=== PATIENT | female | born 1935 | race Caucasian/White ===

== ENCOUNTER 2019-03-20 13:26 | Inpatient (IN) | payer OTHER, MEDICAID ==
[~2019-03-20] VITALS: Ht 149.9 cm; Wt 52.2 kg
[2019-03-20 13:26] VITALS: BP_SYST 138
--- NOTE | 2019-03-20 13:30 | NUR ---
Placed in room 07 . Placed on racetrack steward, blood pressure machine and pulse oximeter. To gown for exam. Side rails up. Report given to Radha PEOPLES.
--- NOTE | 2019-03-20 13:31 | NUR ---
ER at bedside examining patient.
--- NOTE | 2019-03-20 13:35 | NUR ---
Pt AAOx1-2 BIB BLS from [facility] for evaluation of increased confusion, increased general weakness. Labs drawn yesterday with abnormal values of K 6.6, CXR positive PNA, and +UTI. Pt denies complaints at this time. Skin dry and warm, cough present. No other injuries/complaints per pt/noted. Will continue to monitor.
[2019-03-20 14:12] LABS: BASOPHILS % (AUTO) 0.6 % (0.0-2.0); EOSINOPHILS # (AUTO) 0.1 K/uL (0.0-0.4); EOSINOPHILS % (AUTO) 2.2 % (0.0-4.0); HEMATOCRIT 25.1 % (36-48); HEMOGLOBIN 8.3 g/dL (12.0-16.0); LYMPHOCYTES # (AUTO) 0.4 K/uL (1.0-5.5); LYMPHOCYTES % (AUTO) 5.9 % (20.5-51.5); MEAN CORPUSCULAR HEMOGLOBIN 29 pg (27-31); MEAN CORPUSCULAR HGB CONC 33 % (32-36); MEAN CORPUSCULAR VOLUME 87 fL (79.0-98.0); MONOCYTES # (AUTO) 0.7 K/uL (0.0-1.0); MONOCYTES % (AUTO) 11.2 % (1.7-9.3); NEUTROPHILS # (AUTO) 4.9 K/uL (1.8-7.7); NEUTROPHILS % (AUTO) 80.1 % (40.0-70.0); PLATELET COUNT (AUTO) 233 K/uL (130-430); RED BLOOD CELL COUNT(AUTO) 2.88 MIL/uL (4.2-6.2); RED CELL DISTRIBUTION WIDTH 16.3 % (9.0-15.0); WHITE BLOOD COUNT (AUTO) 6.1 K/uL (4.8-10.8)
[2019-03-20] MEDS ORDERED: DONE10TA44 PO (14:13)
[2019-03-20] MEDS ORDERED: LISI10TA PO (14:13)
[2019-03-20] MEDS ORDERED: ATOR40TA68 PO (14:13)
[2019-03-20] MEDS ORDERED: APIX5TAB4 PO (14:13)
[2019-03-20] MEDS ORDERED: LEVO5TAB13 PO (14:13)
[2019-03-20] MEDS ORDERED: ASPI-1153 PO (14:13)
[2019-03-20] MEDS ORDERED: ALEN35TA17 PO (14:13)
[2019-03-20] MEDS ORDERED: METO25TA6 PO (14:13)
[2019-03-20] MEDS ORDERED: BISA10SU61 RC (14:13)
[2019-03-20] MEDS ORDERED: ISOS5TAB3 PO (14:13)
[2019-03-20] MEDS ORDERED: ALBU2.5V7 INH (14:13)
[2019-03-20] MEDS ORDERED: GLU500 PO (14:13)
[2019-03-20] MEDS ORDERED: POLY119P15 PO (14:13)
[2019-03-20] MEDS ORDERED: ALPR0.25 PO (14:13)
[2019-03-20] MEDS ORDERED: ANAS1TAB51 PO (14:13)
[2019-03-20] MEDS ORDERED: CYCL-10 PO (14:13)
[2019-03-20] MEDS ORDERED: PRO40 PO (14:14)
[2019-03-20] MEDS ORDERED: SENN-83 PO (14:14)
[2019-03-20] MEDS ORDERED: TRAM50TA2 PO (14:14)
[2019-03-20] MEDS ORDERED: PERC10 PO (14:14)
--- NOTE | 2019-03-20 14:14 | NUR ---
Medication reconciliation completed with information provided by list from facility. Any prior medication reconciliation on file was reviewed and corrected.
[2019-03-20 14:52] LABS: ALANINE AMINOTRANSFERASE 43 U/L (12-78); ALBUMIN 2.9 g/dL (3.4-4.8); ANION GAP 9 (5-15); ASPARTATE AMINOTRANSFERASE 17 U/L (10-37); CALCIUM 8.8 mg/dL (8.4-11.0); CHLORIDE 100 mmol/L (98-107); CREATININE 2.32 mg/dL (0.55-1.30); GLUCOSE 148 mg/dL (70-99); LIPASE 91 U/L (73-393); SODIUM SERUM 130 mmol/L (136-145); TOTAL BILIRUBIN 0.5 mg/dL (0.0-1.0); UREA NITROGEN, BLOOD 95 mg/dL (8-21)
[2019-03-20 14:54] LABS: POTASSIUM 5.8 mmol/L (3.5-5.1)
[2019-03-20] MEDS ORDERED: AZITHROMYCIN 500 MG in NS 250 ML IV ONE (15:15)
[2019-03-20] MEDS ORDERED: cefTRIAXone 1 GM IVPB PREMIX 50 ML IV ONE (15:15)
[2019-03-20] MEDS ORDERED: SODIUM POLYSTYRENE SULFONATE 15 GM/60 ML UDBTL PO ONE (15:15)
[2019-03-20] MEDS ORDERED: ALBUTEROL SULFATE 0.083% 2.5 MG/3 ML VIAL.NEB INH ONE (15:15)
[2019-03-20] MEDS ORDERED: INSULIN NPH/REGULAR 70-30, 100 UNITS/ML, 10 ML VIAL SUBCUT ONE (15:15)
[2019-03-20] MEDS ORDERED: DEXTROSE 50% JECT 50 ML DISP.SYRIN IVP ONE (15:15)
[2019-03-20] MEDS ORDERED: AZITHROMYCIN 500 MG/VIAL (ZITHROMAX) IV ONE (15:28)
[2019-03-20] MEDS ORDERED: INSULIN REGULAR, HUMAN 100 UNITS/ML, 10 ML VIAL (humuLIN R) SUBCUT PRN (15:30)
[2019-03-20] MEDS ORDERED: INSULIN REGULAR, HUMAN 10 UNITS/0.1 ML INJ IVP ONE (15:30)
--- NOTE | 2019-03-20 15:34 | NUR ---
Patient will be admitted to care of Dr. Faustin. Admitted to Telemetry unit. Will go to room 113A. Belongings list completed. Complete and up to date summary report printed. SBAR report to be given at bedside with opportunity for questions.
[2019-03-20 15:47] LABS: BILIRUBIN,URINE NEGATIVE (NEGATIVE); BLOOD, URINE NEGATIVE (NEGATIVE); CLARITY/URINE CLEAR (CLEAR); COLOR,URINE YELLOW (YELLOW); GLUCOSE,URINE NEGATIVE (NEGATIVE); KETONES,URINE NEGATIVE (NEGATIVE); LEUKOCYTE ESTERASE ,URINE NEGATIVE (NEGATIVE); NITRITE, URINE NEGATIVE (NEGATIVE); PH,URINE 5.5 (5.0-8.0); PROTEIN URINE NEGATIVE (NEGATIVE); UROBILINOGEN,URINE 0.2 (0.2-1.0)
--- NOTE | 2019-03-20 16:36 | NUR ---
Pt resting in bed with eyes open, no complaints of pain at this time. Pt is [place] but answers all questions appropriately.
--- NOTE | 2019-03-20 17:00 | NUR ---
Azithromycin Pt administered IVBP, started at 1609 and ended 1709. 250cc given
--- NOTE | 2019-03-20 17:07 | NUR ---
Bedside report given to Elizabeth PEOPLES.
--- NOTE | 2019-03-20 17:07 | NUR ---
Patient will be admitted to care of Dr. Faustin. Admitted to TELE unit. Will go to room 113-A. Belongings list completed. Complete and up to date summary report printed. SBAR report to be given at bedside with opportunity for questions.
--- NOTE | 2019-03-20 17:10 | NUR ---
ADMISSION NOTE Received patient from ER via gurney. Patient admitted with diagnosis of UTI. Patient is awake, alert, oriented X 1. Patient oriented to hospital room, call light, toileting, pain management and safety-teach back done. Personal belongings checked and Belongings List documented. Call light within reach.
[2019-03-20 17:45] VITALS: BP_SYST 115
[2019-03-20] MEDS ORDERED: traMADol HCL HCL 50 MG TABLET (ULTRAM) PO SCH (17:45)
[2019-03-20] MEDS ORDERED: OXYCODONE/ACETAMINOPHEN *10*mg/325 mg TABLET PO PRN (17:45)
[2019-03-20] MEDS ORDERED: BISACODYL 10 MG/SUPPOSITORY RC SCH (17:45)
[2019-03-20] MEDS ORDERED: ALPRAZolam 0.25 MG TABLET PO SCH (17:45)
[2019-03-20 17:49] VITALS: BP_SYST 115
[2019-03-20] MEDS: 0.45% NACL 1,000 ML IV SCH (18:45)
[2019-03-20] MEDS ORDERED: NON-FORMULARY MEDICATION (Isosorbide Dinitrate 5 MG) PO SCH (19:00)
--- NOTE | 2019-03-20 19:00 | NUR ---
Closing Notes Patient remain to be alert, awake and verbally responsive. IVF infusing well, denies any pain or discomfort at this time. Respiration even and unlabored. Patient had loose stool, Dr. Faustin seen and examined patient, aware of loose stool, possible side effect from Kayexalate given at ER, denies abdominal pain. Fall precaution observe, bed alarm on, bed at lowest position. Call light within the reach. Will endorse to the next shift.
[2019-03-20 19:55] VITALS: BP_SYST 120
--- NOTE | 2019-03-20 19:55 | NUR ---
INITIAL NOTE / SEIZURE PADS REFUSAL AT INITIAL ASSESSMENT, PATIENT IS RESTING IN BED, STABLE, NO SIGNS OF RESPIRATORY DISTRESS. PLAN OF CARE FOR THE EVENING IS COMMUNICATED TO THE PATIENT. PATIENT VERBALIZES NO PAIN AT THIS TIME. PATIENT IS UNABLE TO SUCCESSFULLY DEMONSTRATE USAGE OF CALL LIGHT AT THIS TIME DUE TO COGNITIVE IMPAIRMENT. FALL, SAFETY, AND RESPIRATION PRECAUTIONS WILL BE TAKEN THROUGHOUT THE SHIFT. BED IS LOCKED, ALARMED, AND AT THE LOWEST LEVEL. Addendum: 03/21/19 at 0742 by Mariella Mendez RN ERROR: NO SEIZURE PADS NEED INDICATED.
[2019-03-20] MEDS: CYCLOBENZAPRINE HCL 10 MG TABLET (FLEXERIL) PO SCH (20:49)
[2019-03-20] MEDS: ATORVASTATIN 20 MG TABLET PO SCH (20:49)
[2019-03-20] MEDS: DONEPEZIL HCL 5 MG TABLET (ARICEPT) PO SCH (20:49)
[2019-03-21 01:43] VITALS: BP_SYST 119
--- NOTE | 2019-03-21 02:15 | NUR ---
Consultation Paged Reason for Consultation: CAD Was consult called: Y Person who was notified: Vianney Consulting Physician: Dr. Churchill Temperature Inspector Ordering Physician: Dr. Faustin
--- NOTE | 2019-03-21 02:16 | NUR ---
Consultation Paged Reason for Consultation: Renal Failure Was consult called: Y Person who was notified: Vianney Consulting Physician: Bryson Lamar Circuit Breaker Mechanic Ordering Physician: Dr. Faustin
[2019-03-21] MEDS: ISOSORBIDE DINITRATE 10 MG TABLET (ISORDIL) PO SCH ×5 (03:00→20:15)
--- NOTE | 2019-03-21 06:10 | NUR ---
CLOSING NOTE PATIENT WOKE UP CONFUSED THROUGHOUT THE NIGHT, ORIENTATION EFFORTS WERE SUCCESSFUL. AT THIS TIME, PATIENT IS RESTING IN BED, IS STABLE, NO SIGNS OF RESPIRATORY DISTRESS. BED IS LOCKED, ALARMED, AND AT THE LOWEST LEVEL. FALL AND SAFETY PRECAUTIONS WILL BE TAKEN THROUGHOUT THE SHIFT. BED IS LOCKED, ALARMED, AND AT THE LOWEST LEVEL. WILL CONTINUE TO MONITOR UNTIL SHIFT REPORT IS GIVEN AT BEDSIDE TO AM NURSE.
[2019-03-21] MEDS: 0.45% NACL 1,000 ML IV SCH ×2 (06:19→18:10)
--- NOTE | 2019-03-21 06:53 | NUR ---
Nutrition Update Eric Scale 16 noted. Pt admitted for Pulmonary Nodular Amyloidosis, UTI Diet: [facility] BMI: 20.4 kg/m2 RD to follow per nutrition care standards.
--- NOTE | 2019-03-21 07:30 | NUR ---
Opening Notes Patient received in bed, alert, awake and verbally responsive, respiration even and unlabored. Denies any pain or discomfort at this time. Able to verbalize needs and concerns. Discussed plan of care and usage of call light, patient verbalized understanding. Fall precaution observed, bed at lowest position, bed alarm on. Call light within the reach. Will continue to monitor.
[2019-03-21 07:43] LABS: BASOPHILS % (AUTO) 0.9 % (0.0-2.0); EOSINOPHILS # (AUTO) 0.1 K/uL (0.0-0.4); EOSINOPHILS % (AUTO) 2.2 % (0.0-4.0); HEMATOCRIT 24.1 % (36-48); HEMOGLOBIN 8.5 g/dL (12.0-16.0); LYMPHOCYTES # (AUTO) 0.3 K/uL (1.0-5.5); MEAN CORPUSCULAR HEMOGLOBIN 30 pg (27-31); MEAN CORPUSCULAR HGB CONC 35 % (32-36); MEAN CORPUSCULAR VOLUME 86 fL (79.0-98.0); MONOCYTES # (AUTO) 0.4 K/uL (0.0-1.0); MONOCYTES % (AUTO) 9.6 % (1.7-9.3); NEUTROPHILS # (AUTO) 3.7 K/uL (1.8-7.7); NEUTROPHILS % (AUTO) 80.3 % (40.0-70.0); PLATELET COUNT (AUTO) 230 K/uL (130-430); RED BLOOD CELL COUNT(AUTO) 2.79 MIL/uL (4.2-6.2); RED CELL DISTRIBUTION WIDTH 16.2 % (9.0-15.0); WHITE BLOOD COUNT (AUTO) 4.6 K/uL (4.8-10.8)
[2019-03-21 08:00] VITALS: BP_SYST 109
[2019-03-21 08:15] LABS: ANION GAP 10 (5-15); CALCIUM 8.3 mg/dL (8.4-11.0); CHLORIDE 103 mmol/L (98-107); CREATININE 1.53 mg/dL (0.55-1.30); GLUCOSE 114 mg/dL (70-99); POTASSIUM 4.6 mmol/L (3.5-5.1); SODIUM SERUM 134 mmol/L (136-145); UREA NITROGEN, BLOOD 78 mg/dL (8-21)
[2019-03-21] MEDS: APIXABAN 2.5 MG TABLET PO SCH ×2 (08:41→20:43)
[2019-03-21] MEDS: LISINOPRIL 10 MG TABLET (PRINIVIL) PO SCH (08:42)
[2019-03-21] MEDS: SENNOSIDES/DOCUSATE SODIUM 1 TAB TABLET(SENOKOT-S) PO SCH ×2 (08:42→08:46)
[2019-03-21] MEDS: ANASTROZOLE 1 MG TABLET (ARIMIDEX) PO SCH (08:42)
[2019-03-21] MEDS: CYCLOBENZAPRINE HCL 10 MG TABLET (FLEXERIL) PO SCH ×3 (08:42→20:41)
[2019-03-21] MEDS: ASPIRIN 81 MG TABLET(ECOTRIN) PO SCH (08:42)
[2019-03-21] MEDS: PANTOPRAZOLE SODIUM 40 MG TAB PO SCH (08:42)
[2019-03-21] MEDS: METOPROLOL TARTRATE 25 MG TABLET PO SCH (08:43)
[2019-03-21] MEDS: POLYETHYLENE GLYCOL 3350, 17 GM/ POWD.PACK PO SCH (08:45)
[2019-03-21] MEDS ORDERED: POLYETHYLENE GLYCOL 400 500 GM POWDER PO SCH (09:00)
--- NOTE | 2019-03-21 09:30 | NUR ---
Dr. Churchill Rounds Seen and examined by MD, notified regarding high troponin level, will follow-up for any new orders.
--- NOTE | 2019-03-21 11:30 | NUR ---
Blood Sugar Check patient's blood sugar is 127, no signs of hypoglycemia noted. remain to be alert, awake and verbally responsive. Call light within the reach.
[2019-03-21 12:10] VITALS: BP_SYST 105
--- NOTE | 2019-03-21 13:00 | NUR ---
RN ROUNDS Patient denies any pain or discomfort at this time. respiration even and unlabored. Call light within the reach.
[2019-03-21] MEDS: ALBUTEROL SULFATE 0.083% 2.5 MG/3 ML VIAL.NEB INH PRN (14:32)
--- NOTE | 2019-03-21 15:00 | NUR ---
Dr. Faustin Rounds Seen and examined by MD, will follow-up for any new orders.
[2019-03-21 16:10] VITALS: BP_SYST 116
[2019-03-21] MEDS: cefTRIAXone 1 GM in D5W 50 ML IV SCH (16:25)
--- NOTE | 2019-03-21 17:00 | NUR ---
Blood sugar check Patient's blood sugar is 136, no coverage needed. No signs of hypoglycemia noted. Call light within the reach.
[2019-03-21] MEDS: AZITHROMYCIN 500 MG in NS 250 ML IV SCH (17:45)
[2019-03-21 17:50] LABS: BASOPHILS # (AUTO) 0.1 K/uL (0.0-0.2); BASOPHILS % (AUTO) 1.3 % (0.0-2.0); EOSINOPHILS # (AUTO) 0.1 K/uL (0.0-0.4); EOSINOPHILS % (AUTO) 1.8 % (0.0-4.0); HEMATOCRIT 27.3 % (36-48); HEMOGLOBIN 9.1 g/dL (12.0-16.0); LYMPHOCYTES # (AUTO) 0.4 K/uL (1.0-5.5); LYMPHOCYTES % (AUTO) 6.7 % (20.5-51.5); MEAN CORPUSCULAR HEMOGLOBIN 29 pg (27-31); MEAN CORPUSCULAR HGB CONC 34 % (32-36); MEAN CORPUSCULAR VOLUME 86 fL (79.0-98.0); MONOCYTES # (AUTO) 0.5 K/uL (0.0-1.0); MONOCYTES % (AUTO) 8.5 % (1.7-9.3); NEUTROPHILS # (AUTO) 5.1 K/uL (1.8-7.7); NEUTROPHILS % (AUTO) 81.7 % (40.0-70.0); PLATELET COUNT (AUTO) 299 K/uL (130-430); RED BLOOD CELL COUNT(AUTO) 3.16 MIL/uL (4.2-6.2); WHITE BLOOD COUNT (AUTO) 6.2 K/uL (4.8-10.8)
[2019-03-21 18:03] LABS: ALANINE AMINOTRANSFERASE 47 U/L (12-78); ALBUMIN 3.2 g/dL (3.4-4.8); ANION GAP 9 (5-15); ASPARTATE AMINOTRANSFERASE 21 U/L (10-37); CALCIUM 8.7 mg/dL (8.4-11.0); CHLORIDE 102 mmol/L (98-107); CREATININE 1.35 mg/dL (0.55-1.30); GLUCOSE 162 mg/dL (70-99); POTASSIUM 4.6 mmol/L (3.5-5.1); SODIUM SERUM 134 mmol/L (136-145); TOTAL BILIRUBIN 0.4 mg/dL (0.0-1.0); UREA NITROGEN, BLOOD 61 mg/dL (8-21)
--- NOTE | 2019-03-21 19:30 | NUR ---
Closing Notes Patient is alert, awake and verbally responsive. Denies any pain or discomfort. IVF infusing well. Respiration even and unlabored. Fall precaution observe, bed alarm on, bed at lowest position. Call light within the reach. Will endorse to the next shift.
--- NOTE | 2019-03-21 19:55 | NUR ---
PM SHIFT ASSESSMENT Received patient sitting up in bed, aox1, hard of hearing, no sob noted, on 02 2L NC, vital signs stable. Patient denies any pain or discomfort at this time. IV line to right forearm intact and patent, IVF infusing. Plan of care discussed with patient but unable to understand, fall and safety measures in place. Will closely monitor.
[2019-03-21 20:06] VITALS: BP_SYST 129
[2019-03-21] MEDS: DONEPEZIL HCL 5 MG TABLET (ARICEPT) PO SCH (20:42)
[2019-03-21] MEDS: ATORVASTATIN 20 MG TABLET PO SCH (20:42)
--- NOTE | 2019-03-21 22:15 | NUR ---
RN ROUNDS Patient awake, no sob noted, due medications administered earlier, aspiration precautions maintained, blood sugar check this pm of 146, no insulin coverage noted, patient assisted to bedside commode earlier, hygiene care provided. Fall and safety measures in place, will closely monitor.
--- NOTE | 2019-03-21 22:45 | NUR ---
RN ROUNDS Patient yelling, appears to be anxious and confused, reorientation provided, Xanax 0.25 mg 1 tab administered, aspiration precautions maintained, fall and safety measures in place, will closely monitor.
[2019-03-22] MEDS: ISOSORBIDE DINITRATE 10 MG TABLET (ISORDIL) PO SCH ×7 (00:36→23:00)
[2019-03-22] MEDS: 0.45% NACL 1,000 ML IV SCH ×2 (00:37→20:49)
--- NOTE | 2019-03-22 00:48 | NUR ---
RN ROUNDS Patient awake, in no distress, vital signs stable, assisted to bedside commode, hygiene care provided, placed back in bed, safety and fall precautions in place.
--- NOTE | 2019-03-22 02:02 | NUR ---
RN ROUNDS Patient awake, confused, reoriented to time and place, denies any pain or discomfort at this time, safety and fall precautions in place will closely monitor.
--- NOTE | 2019-03-22 04:20 | NUR ---
RN ROUNDS Patient sleeping, breathing is even and unlabored, remains on 02 2L NC, safety and fall precautions in place, will closely monitor.
--- NOTE | 2019-03-22 06:40 | NUR ---
CLOSING NOTE Patient resting quietly, breathing is even and unlabored, remains on 02 2L NC, blood sugar check this am of 106, no insulin coverage needed, IV line intact and patent, IVF continues to infuse, hygiene care provided, safety and fall precautions maintained through out the shift, will continue to monitor until report given to am nurse.
[2019-03-22 07:11] LABS: BASOPHILS % (AUTO) 0.9 % (0.0-2.0); EOSINOPHILS # (AUTO) 0.1 K/uL (0.0-0.4); EOSINOPHILS % (AUTO) 3.2 % (0.0-4.0); HEMATOCRIT 26.5 % (36-48); HEMOGLOBIN 8.9 g/dL (12.0-16.0); LYMPHOCYTES # (AUTO) 0.5 K/uL (1.0-5.5); LYMPHOCYTES % (AUTO) 10.6 % (20.5-51.5); MEAN CORPUSCULAR HEMOGLOBIN 29 pg (27-31); MEAN CORPUSCULAR HGB CONC 34 % (32-36); MEAN CORPUSCULAR VOLUME 86 fL (79.0-98.0); MONOCYTES # (AUTO) 0.5 K/uL (0.0-1.0); MONOCYTES % (AUTO) 11.4 % (1.7-9.3); NEUTROPHILS # (AUTO) 3.2 K/uL (1.8-7.7); NEUTROPHILS % (AUTO) 73.9 % (40.0-70.0); PLATELET COUNT (AUTO) 249 K/uL (130-430); RED BLOOD CELL COUNT(AUTO) 3.08 MIL/uL (4.2-6.2); RED CELL DISTRIBUTION WIDTH 16.2 % (9.0-15.0); WHITE BLOOD COUNT (AUTO) 4.3 K/uL (4.8-10.8)
[2019-03-22 07:56] LABS: ALANINE AMINOTRANSFERASE 40 U/L (12-78); ANION GAP 9 (5-15); ASPARTATE AMINOTRANSFERASE 17 U/L (10-37); CALCIUM 8.6 mg/dL (8.4-11.0); CHLORIDE 105 mmol/L (98-107); CREATININE 1.12 mg/dL (0.55-1.30); GLUCOSE 124 mg/dL (70-99); POTASSIUM 4.5 mmol/L (3.5-5.1); SODIUM SERUM 136 mmol/L (136-145); TOTAL BILIRUBIN 0.5 mg/dL (0.0-1.0); UREA NITROGEN, BLOOD 45 mg/dL (8-21)
--- NOTE | 2019-03-22 08:00 | NUR ---
INITIAL NOTES- IN BED, AWAKE. CONFUSED. DENIES ANY CHEST PAIN,ON O2 2L TOLERATING WELL, HAS SOME WHEEZES. IVF INFUSING WELL. SAFETY PRECAUTION OBSERVED. CALL LIGHT WITHIN REACH. BED ALARM ON. WILL CONTINUE TO MONITOR.
[2019-03-22 08:01] VITALS: BP_SYST 137
[2019-03-22] MEDS: PANTOPRAZOLE SODIUM 40 MG TAB PO SCH (08:59)
[2019-03-22] MEDS: ANASTROZOLE 1 MG TABLET (ARIMIDEX) PO SCH (08:59)
[2019-03-22] MEDS: CYCLOBENZAPRINE HCL 10 MG TABLET (FLEXERIL) PO SCH ×3 (09:00→20:47)
[2019-03-22] MEDS: POLYETHYLENE GLYCOL 3350, 17 GM/ POWD.PACK PO SCH (09:00)
[2019-03-22] MEDS: METOPROLOL TARTRATE 25 MG TABLET PO SCH (09:00)
[2019-03-22] MEDS: SENNOSIDES/DOCUSATE SODIUM 1 TAB TABLET(SENOKOT-S) PO SCH (09:00)
[2019-03-22] MEDS: ASPIRIN 81 MG TABLET(ECOTRIN) PO SCH (09:00)
[2019-03-22] MEDS: LISINOPRIL 10 MG TABLET (PRINIVIL) PO SCH (09:00)
[2019-03-22] MEDS: APIXABAN 2.5 MG TABLET PO SCH ×2 (09:01→20:48)
--- NOTE | 2019-03-22 10:00 | NUR ---
NOTES- IN BED, RESTING. MEDICATIONS GIVEN. PT IS COOERATIVE AND TAKE ALL HER MEDS, CRUSH AND GIVE IT WITH APPLE SAUCE. HAS INCONTINENT OF URINE. CHANGED AND REPOSITIONED.
[2019-03-22 11:23] VITALS: BP_SYST 110
--- NOTE | 2019-03-22 12:08 | NUR ---
NOTES- PT EATING LUNCH, FEED HERSELF. DENIES ANY PAIN . WILL CONTINUE TO MONITOR.
--- NOTE | 2019-03-22 14:20 | NUR ---
Nutrition Assessment (short note d/t high patient load) A - RD reviewed pertinent nutrition-related info via EMR (physician notes/nursing notes/labs/meds/nursing care trends/care activity). Admission Dx: Pulmonary nodular amyloidosis/UTI Pt also found w/ pneumonia, dehydration, ARF, anemia per physician notes PMH: HTN, DM, CAD, DJD per physician notes Current Diet Order/Nutrition Support: CCHO + renal (2 active, separate diet orders) x2 days Ht: 4'11"/59" Wt: 115#/52 kg IBW: 98#/45 kg %IBW: 117% UBW: Unknown BMI: 23.23 kg/m2 (normal for geriatric age) Subjective Info: RD Notification received for dehydration. Pt seen resting in bed w/ daughter at bedside helping to feed pt lunch. Pt has both upper and lower dentures and denied any chewing/swallowing difficulties. Pt has not eaten much today, but usually has a good appetite. Anthropometrics verified. Pt is very [id number], but pt was able to answer some questions w/ the help of pt's daughter. Per EMR records, pt is not yet meeting optimal nutritional needs -- PO intake records indicated 53% average intakes x3 meals. No supplement use reported by pt. No wounds noted per EMR. Pt would benefit from ONS to better meet nutritional needs. Pt agreeable to Glucerna ONS. ESTIMATED NUTRITIONAL NEEDS CALORIES/DAY: 8234-5074 kcal/day (25-30 kcal/kg CBW for geriatric maintenance) PROTEIN/DAY: 42-62 gm/day (0.8-1.2 gm/kg CBW for geriatric maintenance) FLUID/DAY: Per physician d/t ARF D - Inadequate nutritional needs related to lack of appetite as evidenced by low PO intake records. I - Recommend CCHO diet, Glucerna TID (ONS provides 660 kcal/day, 30 gm protein/day) M - Monitor appetite and PO intakes w/ goal of pt meeting greater than 75% of estimated nutritional needs, labs trending WNL, normal GI function, and skin integrity/wt maintenance E - Moderate risk; F/U 3-5 days
--- NOTE | 2019-03-22 14:31 | NUR ---
Dietitian Recommendations * [facility], Glucerna TID (ONS provides 660 kcal/day, 30 gm protein/day) LP, RD Please refer to Nutrition Assessment for details.
--- NOTE | 2019-03-22 14:46 | NUR ---
MD ROUNDS SEEN BY DR. MAGUIRE AT BEDSIDE AND TALK TO FAMILY AT BEDSIDE.
[2019-03-22 15:26] VITALS: BP_SYST 123
[2019-03-22] MEDS: cefTRIAXone 1 GM in D5W 50 ML IV SCH (15:36)
[2019-03-22] MEDS: AZITHROMYCIN 500 MG in NS 250 ML IV SCH (15:37)
[2019-03-22] MEDS: ALBUTEROL SULFATE 0.083% 2.5 MG/3 ML VIAL.NEB INH PRN (16:07)
--- NOTE | 2019-03-22 19:55 | NUR ---
PM SHIFT ASSESSMENT Received patient lying in bed, aox1, hard of hearing, no sob noted, on 02 2L NC, vital signs stable. Patient denies any pain or discomfort at this time. IV line to right forearm intact and patent, IVF infusing. Plan of care discussed with patient but unable to understand, fall and safety measures in place. Will closely monitor.
[2019-03-22 20:00] VITALS: BP_SYST 134
[2019-03-22] MEDS: DONEPEZIL HCL 5 MG TABLET (ARICEPT) PO SCH (20:47)
[2019-03-22] MEDS: ATORVASTATIN 20 MG TABLET PO SCH (20:47)
[2019-03-22] MEDS: MEGESTROL ACETATE 400 MG/10 ML UDC PO SCH (20:47)
--- NOTE | 2019-03-22 21:45 | NUR ---
RN ROUNDS Patient awake, due medications administered, aspiration precautions maintained, blood sugar check this pm of 168, covered with insulin per md sliding scale, incontinence and hygiene care provided. Fall and safety measures in place, will closely monitor.
[2019-03-23] MEDS: ALBUTEROL SULFATE 0.083% 2.5 MG/3 ML VIAL.NEB INH PRN (00:04)
--- NOTE | 2019-03-23 00:30 | NUR ---
RN ROUNDS/IV Patient awake, in no distress, vital signs stable, pulled out IV line to right forearm, new IV line placed to left forearm with 22 guage catheter, good blood return noted, secured with opsite and tape, resumed IVF, repositioned and turned with pillow support, safety and fall precautions in place.
--- NOTE | 2019-03-23 02:18 | NUR ---
RN ROUNDS Patient sleeping, breathing is even and unlabored, remains on 02 2L NC, IVF continues to infuse, safety and fall precautions in place, will closely monitor.
[2019-03-23] MEDS: ISOSORBIDE DINITRATE 10 MG TABLET (ISORDIL) PO SCH ×4 (03:00→15:11)
--- NOTE | 2019-03-23 04:04 | NUR ---
RN ROUNDS Patient continues to sleep, breathing is even and unlabored, remains on 02 2L NC, IVF continues to infuse, safety and fall precautions in place, will closely monitor.
[2019-03-23 06:34] LABS: EOSINOPHILS # (AUTO) 0.1 K/uL (0.0-0.4); EOSINOPHILS % (AUTO) 1.6 % (0.0-4.0); HEMATOCRIT 24.3 % (36-48); HEMOGLOBIN 8.2 g/dL (12.0-16.0); LYMPHOCYTES # (AUTO) 0.4 K/uL (1.0-5.5); LYMPHOCYTES % (AUTO) 8.4 % (20.5-51.5); MEAN CORPUSCULAR HEMOGLOBIN 29 pg (27-31); MEAN CORPUSCULAR HGB CONC 34 % (32-36); MEAN CORPUSCULAR VOLUME 86 fL (79.0-98.0); MONOCYTES # (AUTO) 0.5 K/uL (0.0-1.0); MONOCYTES % (AUTO) 10.7 % (1.7-9.3); NEUTROPHILS # (AUTO) 3.3 K/uL (1.8-7.7); NEUTROPHILS % (AUTO) 78.3 % (40.0-70.0); PLATELET COUNT (AUTO) 252 K/uL (130-430); RED BLOOD CELL COUNT(AUTO) 2.82 MIL/uL (4.2-6.2); WHITE BLOOD COUNT (AUTO) 4.3 K/uL (4.8-10.8)
--- NOTE | 2019-03-23 06:45 | NUR ---
CLOSING NOTE Patient resting quietly, breathing is even and unlabored, remains on 02 2L NC, blood sugar check this am of 89, no insulin coverage needed, IV line intact and patent, IVF continues to infuse, hygiene care provided, safety and fall precautions maintained through out the shift, will continue to monitor until report given to am nurse.
--- NOTE | 2019-03-23 07:15 | NUR ---
Opening Note Received bedside SBAR report from station usher RN, patient in bed resting, respirations even and unlabored on 2L nasal canula, bed in low and locked position with bed alarm on, call light in reach
[2019-03-23 07:31] LABS: ALANINE AMINOTRANSFERASE 44 U/L (12-78); ALBUMIN 2.7 g/dL (3.4-4.8); ANION GAP 6 (5-15); ASPARTATE AMINOTRANSFERASE 22 U/L (10-37); CALCIUM 8.1 mg/dL (8.4-11.0); CHLORIDE 103 mmol/L (98-107); CREATININE 1.11 mg/dL (0.55-1.30); GLUCOSE 112 mg/dL (70-99); POTASSIUM 4.7 mmol/L (3.5-5.1); SODIUM SERUM 133 mmol/L (136-145); TOTAL BILIRUBIN 0.3 mg/dL (0.0-1.0); UREA NITROGEN, BLOOD 34 mg/dL (8-21)
[2019-03-23] MEDS ORDERED: ALPRAZolam 0.25 MG TABLET PO PRN (07:47)
[2019-03-23] MEDS ORDERED: traMADol HCL HCL 50 MG TABLET (ULTRAM) PO PRN (07:48)
[2019-03-23 08:00] VITALS: BP_SYST 103
[2019-03-23] MEDS: MEGESTROL ACETATE 400 MG/10 ML UDC PO SCH (09:03)
[2019-03-23] MEDS: PANTOPRAZOLE SODIUM 40 MG TAB PO SCH (09:04)
[2019-03-23] MEDS: APIXABAN 2.5 MG TABLET PO SCH (09:04)
[2019-03-23] MEDS: SENNOSIDES/DOCUSATE SODIUM 1 TAB TABLET(SENOKOT-S) PO SCH (09:04)
[2019-03-23] MEDS: ASPIRIN 81 MG TABLET(ECOTRIN) PO SCH (09:04)
[2019-03-23] MEDS: CYCLOBENZAPRINE HCL 10 MG TABLET (FLEXERIL) PO SCH ×2 (09:05→15:11)
[2019-03-23] MEDS: ANASTROZOLE 1 MG TABLET (ARIMIDEX) PO SCH (09:05)
[2019-03-23] MEDS: POLYETHYLENE GLYCOL 3350, 17 GM/ POWD.PACK PO SCH (09:08)
--- NOTE | 2019-03-23 09:15 | NUR ---
Physical Therapy Patient up and ambulating with physical therapy, unsteady gait noted, patient assisted back to bed by physical therapist, no acute distress noted, patient resting in bed
[2019-03-23] MEDS: LISINOPRIL 10 MG TABLET (PRINIVIL) PO SCH (11:04)
[2019-03-23] MEDS: METOPROLOL TARTRATE 25 MG TABLET PO SCH (11:05)
--- NOTE | 2019-03-23 11:20 | NUR ---
Physician Rounds Dr. Churchill at patients bedside examining patient
[2019-03-23 12:06] LABS: IMMUNOGLOBULIN G, SERUM 894 mg/dL (700-1600)
[2019-03-23 12:08] VITALS: BP_SYST 136
--- NOTE | 2019-03-23 12:08 | NUR ---
DC Planning: s/w [facility] at [facility], the pt is accepted and has bed available # 7B if dc during weekend. RN /John/idania made aware.
[2019-03-23] MEDS: 0.45% NACL 1,000 ML IV SCH (12:50)
--- NOTE | 2019-03-23 14:05 | NUR ---
RN Rounds Patient in bed resting, respirations even and unlabored on 2L nasal canula, IV site infusing well, call light in reach
[2019-03-23] MEDS: cefTRIAXone 1 GM in D5W 50 ML IV SCH (15:16)
[2019-03-23 16:13] VITALS: BP_SYST 132
[2019-03-23] MEDS: AZITHROMYCIN 500 MG in NS 250 ML IV SCH (17:00)
--- NOTE | 2019-03-23 17:03 | NUR ---
Discharge planning called [facility] ambulance for transfer of patient to [facility], pickup time scheduled for 1829.
--- NOTE | 2019-03-23 17:45 | NUR ---
RN Rounds Patient in bed resting, respirations even and unlabored on 2L nasal canula, bed in low and locked position with bed alarm on, call light in reach
[2019-03-23 18:29] VITALS: BP_SYST 107
--- NOTE | 2019-03-23 18:50 | NUR ---
Spoke with Family Spoke with patients daughter Kelly, daughter is aware of transfer to [facility] and is agreeable
--- NOTE | 2019-03-23 18:55 | NUR ---
Discharge Patient Discharge packet and instructions sent with patient, no acute distress noted, IV clean, dry and intact, all belongings sent with patient, patient transferred via gurney via BLS ambulance on 2L nasal canula
[2019-03-25] MEDS ORDERED: ALENDRONATE 70 MG PO SCH (06:00)
[2019-03-25 12:28] LABS: CANCER AG, 125 72.4 U/mL (0.0-38.1)
[2019-03-25 16:06] LABS: A/G RATIO 0.9 (0.7-1.7); ALPHA-1-GLOBULIN 0.4 g/dL (0.0-0.4); ALPHA-2-GLOBULIN 1.2 g/dL (0.4-1.0); BETA GLOBULIN 1.1 g/dL (0.7-1.3); GAMMA GLOBULIN 0.8 g/dL (0.4-1.8); GLOBULIN, TOTAL 3.5 g/dL (2.2-3.9); M-SPIKE Not Observed g/dL (Not Observed)
== END 2019-03-23 19:15 | DRG 177 ==
LOC: SED 13:26 → STU 15:29
PROVIDERS: ADMIT Family Medicine; ATTEND Family Medicine
DX: J15.6 Pneumonia due to other Gram-negative bacteria (principal); E43 Unspecified severe protein-calorie malnutrition; N17.9 Acute kidney failure, unspecified; J44.0 Chronic obstructive pulmonary disease with (acute) lower respiratory infection; N39.0 Urinary tract infection, site not specified; C79.51 Secondary malignant neoplasm of bone; I50.40 Unspecified combined systolic (congestive) and diastolic (congestive) heart failure; I11.0 Hypertensive heart disease with heart failure; D64.9 Anemia, unspecified; E86.0 Dehydration; E11.9 Type 2 diabetes mellitus without complications; E87.5 Hyperkalemia; F03.90 Unspecified dementia, unspecified severity, without behavioral disturbance, psychotic disturbance, mood disturbance, and anxiety; H91.90 Unspecified hearing loss, unspecified ear; I25.10 Atherosclerotic heart disease of native coronary artery without angina pectoris; I25.5 Ischemic cardiomyopathy; I36.1 Nonrheumatic tricuspid (valve) insufficiency; K21.9 Gastro-esophageal reflux disease without esophagitis; M19.90 Unspecified osteoarthritis, unspecified site; Z85.3 Personal history of malignant neoplasm of breast; Z90.13 Acquired absence of bilateral breasts and nipples; Z95.1 Presence of aortocoronary bypass graft; Z68.23 Body mass index [BMI] 23.0-23.9, adult; Z79.899 Other long term (current) drug therapy
CPT/HCPCS: 36415; 71045; 76770; 80048; 80053; 81003; 82550-TC; 82784; 82962; 83605; 83690-TC; 83880; 84155; 84165; 84484; 85025; 86300; 86304; 87040-TC; 87081; 87086; 93005; 93306; 94640; 96365; 96375; 97110-GP; 97116-GP; 97530-GP; 99285; G0378; J0456; J0696; J1815; J7050; J7060; J7613